=== PATIENT | male | born 1970 | race Caucasian/White ===

== ENCOUNTER 2019-06-11 04:11 | Emergency (ER) | payer MEDICAID, OTHER ==
[~2019-06-11] VITALS: Ht 180.3 cm; Wt 67.1 kg
[~2019-06-11 04:11] MED LIST: AMOX1TAB64 PO; DOCU-131 PO; HYDR-3237 PO; HYDR-3240 PO; IBUP-1222 PO
[2019-06-11 04:18] VITALS: BP 137/97
[2019-06-11 06:12] LABS: MEAN CORPUSCULAR HGB CONC 33.4 g/dL (33.2-36.2); MEAN CORPUSCULAR VOLUME 92.8 fL (81-97); MEAN PLATELET VOLUME 7.7 fL (7.4-10.4); PLATELET COUNT 210 x10^3/uL (130-400); RED BLOOD COUNT 4.97 x10^6/uL (4.38-5.82); RED CELL DISTRIBUTION WIDTH 13.5 % (9.4-14.8)
[2019-06-11 06:18] LABS: ALBUMIN 2.6 g/dL (3.4-5.0); ANION GAP 6 mmol/L (5-15); CALCIUM 8.5 mg/dL (8.5-10.1); CHLORIDE 103 mmol/L (98-107)
[2019-06-11 06:21] LABS: ALANINE AMINOTRANSFERASE 24 U/L (12-78); ALKALINE PHOSPHATASE 66 U/L (45-117); BILIRUBIN,TOTAL 0.7 mg/dL (0.2-1.0); CREATININE 0.95 mg/dL (0.7-1.3); TOTAL PROTEIN 7.1 g/dL (6.4-8.2)
[2019-06-11] MEDS ORDERED: AZITHROMYCIN 500 MG TABLET PO ONE (06:30)
[2019-06-11] MEDS ORDERED: AMOXICILLIN 500 MG CAPSULE PO ONE (06:30)
[2019-06-11 06:40] LABS: MD YES
[2019-06-11 06:43] LABS: BAND#(MANUAL) 1.22 x10^3/uL; BANDS%(MANUAL) 9 % (0-7); LYMPH#(MANUAL) 0.68 x10^3/uL (1-3.4); LYMPHS% (MANUAL) 5 % (22-44); METAMYELOCYTES# (MANUAL) 0.14 x10^3/uL (0-0); METAMYELOCYTES% (MANUAL) 1 % (0-1); MONOS#(MANUAL) 0.81 x10^3/uL (0.3-2.7); MONOS% (MANUAL) 6 % (2-9); SEG#(MANUAL) 10.67 x10^3/uL (1.8-6.8); SEGS% (MANUAL) 79 % (42-75)
[2019-06-11 06:44] LABS: <PLATELET ESTIMATE> ADEQUATE; <PLT MORPHOLOGY> NORMAL PLT MORPH; <RBC MORPHOLOGY> NORMAL
[2019-06-11] MEDS ORDERED: AMOXICILLIN 500 MG CAPSULE ONE (06:52)
[2019-06-11] MEDS ORDERED: KETOROLAC 30 MG/1 ML ONE (06:53)
[2019-06-11] MEDS ORDERED: AZITHROMYCIN 250 MG TABLET ONE (06:53)
--- NOTE | 2019-06-11 06:59 | NUR ---
REPORT RECEIVED FROM MAGED BERNABE. PT MEDICATED PER EMAR. AWARE OF DC PLAN. GETTING DRESSED NOW.
[2019-06-11] MEDS ORDERED: KETOROLAC 30 MG/1 ML IM ONE (07:00)
== END 2019-06-11 07:09 | disposition home or self-care (01) ==
LOC: ED 07:07
DX: J15.9 Unspecified bacterial pneumonia (principal); R19.7 Diarrhea, unspecified; R07.89 Other chest pain
CPT/HCPCS: 36415; 71046; 80053; 85025; 96372; 99284; J1885